=== PATIENT | female | born 1945 ===

== ENCOUNTER 2018-03-07 12:29 | Observation (INO) ==
[2018-03-07 13:28] LABS: Alanine Aminotransferase 18 U/L (13-56); Albumin 1.5 G/DL (3.4-5.0); Alkaline Phosphatase 143 U/L (45-117); Aspartate Amino Transferase 16 U/L (0-37); Bilirubin,Total < 0.39 MG/DL (0.2-1.0); Blood Urea Nitrogen 33 MG/DL (7-18); Calcium 7.3 MG/DL (8.5-10.1); Glucose 89 MG/DL (74-106); Osmolality,Calculated 284.4 MOS/KG (273-304); Potassium 5.2 MMOL/L (3.5-5.1); Sodium 140 MMOL/L (136-145); Total Protein 6.5 G/DL (6.4-8.3)
[2018-03-07 13:29] LABS: Lactic Acid 0.7 MMOL/L (0.4-2.0)
[2018-03-07 14:19] LABS: Basophils % 0.4 % (0.0-0.8); Eosinophils # 0.3 10*3/uL (0.0-0.87); Eosinophils % 3.3 % (0.00-10.9); Hematocrit 22.5 VOL% (35.7-47.0); Immature Granulocytes % 0.6 %; Immature Granulocytes Absolute 0.05 #; Lymphocytes # 2.1 10*3/uL (1.4-4.0); Lymphocytes % 26.9 % (21.3-54.2); Mean Corpuscular HGB Conc 31.1 GM/DL (32-36); Mean Corpuscular Hemoglobin 32 PG (27-34); Mean Corpuscular Volume 103.2 FL (87-102); Mean Platelet Volume 9.3 FL (9.6-12.0); Monocytes # 0.6 10*3/uL (0.11-0.8); Monocytes % 7.4 % (1.7-12.7); Neutrophils # 4.8 10*3/uL (1.4-7.4); Neutrophils % 61.4 % (38.7-73.9); Platelet Count 357 T/CUMM (130-400); Red Blood Count 2.18 MC/CUMM (3.8-5.5); Red Cell Distribution Width 13.4 % (9.3-17.3)
[2018-03-07 14:20] LABS: White Blood Count 7.9 T/CUMM (4-12)
[2018-03-07] MEDS ORDERED: GLUCAGON 1 MG VIAL IM PRN (14:34)
[2018-03-07] MEDS ORDERED: ACETAMINOPHEN 325 MG TABLET PO PRN (14:34)
[2018-03-07] MEDS ORDERED: DEXTROSE 50% 25 GM/50 ML VIAL IV PRN (14:34)
[2018-03-07] MEDS ORDERED: SODIUM CHLORIDE 0.9% 1,000 ML IV PRN ×2 (14:41→15:18)
[2018-03-07] MEDS: INSULIN REGULAR 100 UNIT/ML SUBCUT SCH ×2 (16:59→20:57)
[2018-03-08 05:59] LABS: Basophils % 0.7 % (0.0-0.8); Eosinophils # 0.3 10*3/uL (0.0-0.87); Hematocrit 26.1 VOL% (35.7-47.0); Hemoglobin 8.3 GM/DL (12.0-16.0); Immature Granulocytes % 0.7 %; Immature Granulocytes Absolute 0.04 #; Lymphocytes % 33.4 % (21.3-54.2); Mean Corpuscular HGB Conc 31.8 GM/DL (32-36); Mean Corpuscular Hemoglobin 31 PG (27-34); Mean Platelet Volume 9.3 FL (9.6-12.0); Monocytes # 0.6 10*3/uL (0.11-0.8); Neutrophils % 50.2 % (38.7-73.9); Platelet Count 295 T/CUMM (130-400); Red Blood Count 2.72 MC/CUMM (3.8-5.5); Red Cell Distribution Width 15.6 % (9.3-17.3)
[2018-03-08 06:28] LABS: Calcium 7.2 MG/DL (8.5-10.1); Osmolality,Calculated 290.1 MOS/KG (273-304); Potassium 5.2 MMOL/L (3.5-5.1)
[2018-03-08] MEDS ORDERED: PANTOPRAZOLE 40 MG TABLET PO SCH (09:00)
[2018-03-08] MEDS: INSULIN REGULAR 100 UNIT/ML SUBCUT SCH (09:25)
[2018-03-08 12:05] VITALS: BP 157/84
== END 2018-03-08 12:08 ==
LOC: EDUNIT# → EDBD → N.EDINP 12:29 → N.ED 12:29 → N.EDINP 16:25 → N.2E 16:34
PROVIDERS: ADMIT Internal Medicine Geriatric Medicine; ATTEND Internal Medicine Geriatric Medicine

== ENCOUNTER 2019-06-26 06:04 | Inpatient (IN) ==
[~2019-06-26 06:04] MED LIST: FAMOTIDINE 20 MG/2 ML VIAL IV ONE; ceFAZolin 1,000 MG in SYRINGE 1 EACH IV ONE
[2019-06-26] MEDS ORDERED: ceFAZolin 1,000 MG VIAL ONE (06:08)
[2019-06-26] MEDS ORDERED: DEXTROSE 50% 25 GM/50 ML VIAL IV ONE ×2 (07:04→11:59)
[2019-06-26] MEDS ORDERED: GABAPENTIN 400 MG CAPSULE PO ONE (07:08)
[2019-06-26] MEDS: LACTATED RINGERS 1,000 ML IV SCH (07:50)
[2019-06-26] MEDS ORDERED: GABAPENTIN 400 MG CAPSULE ONE (08:12)
[2019-06-26] MEDS ORDERED: FAMOTIDINE 20 MG/2 ML VIAL IV ONE (08:13)
[2019-06-26 09:19] LABS: Basophils % 0.2 % (0.0-0.8); Eosinophils % 0.2 % (0.00-10.9); Hematocrit 26.5 VOL% (35.7-47.0); Immature Granulocytes % 0.4 %; Immature Granulocytes Absolute 0.05 #; Mean Corpuscular HGB Conc 30.2 GM/DL (32-36); Mean Corpuscular Volume 103.1 FL (87-102); Monocytes % 5.6 % (1.7-12.7); Neutrophils % 85.6 % (38.7-73.9); Platelet Count 320 T/CUMM (130-400); Red Blood Count 2.57 MC/CUMM (3.8-5.5); Red Cell Distribution Width 19.3 % (9.3-17.3); White Blood Count 12.6 T/CUMM (4-12)
[2019-06-26 09:47] LABS: Albumin 1.3 G/DL (3.4-5.0); Bilirubin,Total 0.4 MG/DL (0.2-1.0); Osmolality,Calculated 291.3 MOS/KG (273-304); Total Protein 5.9 G/DL (6.4-8.3)
[2019-06-26 09:49] LABS: Calcium 5.2 MG/DL (8.5-10.1)
[2019-06-26] MEDS ORDERED: CALCIUM CHLORIDE 1,000 MG/10 ML VIAL IV ONE (09:53)
[2019-06-26] MEDS ORDERED: ONDANSETRON 4 MG/2 ML VIAL IV PRN (10:54)
[2019-06-26] MEDS ORDERED: HYDROmorphone 2 MG/1 ML VIAL IV PRN ×2 (10:54)
[2019-06-26] MEDS ORDERED: ACETAMINOPHEN 325 MG TABLET PO PRN (10:54)
[2019-06-26] MEDS ORDERED: BISACODYL 5 MG TABLET PO PRN (10:54)
[2019-06-26] MEDS ORDERED: ALBUTEROL/IPRATROPIUM 3 ML NEB RESP TX PRN (10:54)
[2019-06-26] MEDS ORDERED: DEXTROSE 50% 25 GM/50 ML VIAL IV PRN (10:58)
[2019-06-26] MEDS ORDERED: GLUCAGON 1 MG VIAL IM PRN (10:58)
[2019-06-26] MEDS ORDERED: dimenhyDRINATE 50 MG TABLET PO PRN (10:59)
[2019-06-26] MEDS ORDERED: diphenhydrAMINE CAP 25 MG CAPSULE PO PRN (10:59)
[2019-06-26] MEDS ORDERED: LIDOCAINE 2% 5 ML VIAL ONE (11:41)
[2019-06-26] MEDS ORDERED: fentaNYL 100 MCG/2 ML VIAL ONE (11:41)
[2019-06-26] MEDS ORDERED: ONDANSETRON 4 MG/2 ML VIAL ONE (11:42)
[2019-06-26] MEDS ORDERED: ePHEDrine 50 MG/ML AMP ONE (11:42)
[2019-06-26] MEDS ORDERED: ETOMIDATE 40 MG/20 ML VIAL IV ONE (11:42)
[2019-06-26] MEDS ORDERED: KETAMINE 500 MG/10 ML VIAL ONE (11:42)
[2019-06-26] MEDS ORDERED: SEVOFLURANE 1 UNIT/15 MINUTE INH ONE (11:42)
[2019-06-26] MEDS ORDERED: PHENYLEPHRINE 1 MG/10 ML SYRINGE IV ONE (11:43)
[2019-06-26] MEDS: INSULIN LISPRO 100 UNIT/ML SUBCUT SCH ×2 (12:54→16:31)
[2019-06-26] MEDS: hydrALAZINE 25 MG TABLET PO SCH ×2 (15:42→21:52)
[2019-06-26] MEDS: ceFAZolin 2,000 MG in PREMIX 1 EACH IV SCH (17:10)
[2019-06-26] MEDS ORDERED: ARGININE GLUTAMINE CALCIUM HMB PO SCH (21:00)
[2019-06-26] MEDS: FERROUS SULFATE 325 MG TABLET PO SCH (21:52)
[2019-06-26] MEDS: ZINC OXIDE PASTE 113 GM TUBE TOP SCH (21:52)
[2019-06-27] MEDS: ceFAZolin 2,000 MG in PREMIX 1 EACH IV SCH (00:51)
[2019-06-27 05:55] LABS: Osmolality,Calculated 293.3 MOS/KG (273-304)
[2019-06-27 05:58] LABS: Calcium 5.5 MG/DL (8.5-10.1)
[2019-06-27] MEDS: LACTATED RINGERS 1,000 ML IV SCH ×2 (06:14→19:35)
[2019-06-27 06:50] LABS: Basophils % 0.3 % (0.0-0.8); Eosinophils # 0.1 10*3/uL (0.0-0.87); Eosinophils % 0.9 % (0.00-10.9); Hematocrit 19.1 VOL% (35.7-47.0); Immature Granulocytes % 0.6 %; Immature Granulocytes Absolute 0.04 #; Lymphocytes # 1.1 10*3/uL (1.4-4.0); Lymphocytes % 17.6 % (21.3-54.2); Mean Corpuscular HGB Conc 30.4 GM/DL (32-36); Mean Corpuscular Volume 103.2 FL (87-102); Mean Platelet Volume 9.6 FL (9.6-12.0); Monocytes % 8.1 % (1.7-12.7); Neutrophils % 72.5 % (38.7-73.9); Platelet Count 234 T/CUMM (130-400); Red Blood Count 1.85 MC/CUMM (3.8-5.5); Red Cell Distribution Width 19.3 % (9.3-17.3); White Blood Count 6.4 T/CUMM (4-12)
[2019-06-27 06:56] LABS: Hemoglobin 5.8 GM/DL (12.0-16.0)
[2019-06-27] MEDS ORDERED: SODIUM CHLORIDE 0.9% 1,000 ML IV PRN (07:08)
[2019-06-27] MEDS ORDERED: CALCIUM GLUCONATE 2,000 MG in SODIUM CHLORIDE 0.9% 100 ML IV ONE ×2 (08:00→11:00)
[2019-06-27] MEDS: INSULIN LISPRO 100 UNIT/ML SUBCUT SCH ×3 (09:34→17:49)
[2019-06-27] MEDS: ZINC SULFATE 220 MG CAPSULE PO SCH (10:12)
[2019-06-27] MEDS: ASCORBIC ACID 500 MG TABLET PO SCH (10:13)
[2019-06-27] MEDS: FERROUS SULFATE 325 MG TABLET PO SCH ×2 (10:13→20:45)
[2019-06-27] MEDS: PANTOPRAZOLE 40 MG TABLET PO SCH (10:13)
[2019-06-27] MEDS: hydrALAZINE 25 MG TABLET PO SCH ×3 (10:13→20:44)
[2019-06-27] MEDS: MAGNESIUM HYDROXIDE SUSP 30 ML UDCUP PO SCH (10:14)
[2019-06-27] MEDS: ZINC OXIDE PASTE 113 GM TUBE TOP SCH ×2 (10:19→20:45)
[2019-06-27 10:44] LABS: Parathyroid Hormone Intact 52.5 PG/ML (18.4-80.1)
[2019-06-27] MEDS ORDERED: MAGNESIUM SULF RIDER 2 GM in PREMIX 1 EACH IV ONE (11:02)
[2019-06-27 16:02] LABS: % Iron Saturation 31.7 % (18-50); Ferritin 1704.4 ng/ml (8-252)
[2019-06-27 16:19] LABS: Folate 7.5 NG/ML (5.4-24.0)
[2019-06-27] MEDS ORDERED: SODIUM CHLORIDE 0.9% 500 ML IV ONE (19:07)
[2019-06-27] MEDS: CALCIUM (CARBONATE)/VITAMIN D 600 MG-400 UNIT TABLET PO SCH (20:44)
[2019-06-28 01:48] LABS: Hematocrit 26.9 VOL% (35.7-47.0)
[2019-06-28 01:50] LABS: Hemoglobin 8.5 GM/DL (12.0-16.0)
[2019-06-28 02:15] LABS: Basophils % 0.2 % (0.0-0.8); Eosinophils # 0.1 10*3/uL (0.0-0.87); Eosinophils % 2.5 % (0.00-10.9); Immature Granulocytes Absolute 0.05 #; Lymphocytes # 1.1 10*3/uL (1.4-4.0); Lymphocytes % 20.8 % (21.3-54.2); Mean Corpuscular HGB Conc 31.1 GM/DL (32-36); Mean Corpuscular Volume 97.5 FL (87-102); Mean Platelet Volume 9.7 FL (9.6-12.0); Monocytes % 6.8 % (1.7-12.7); Neutrophils % 68.7 % (38.7-73.9); Platelet Count 197 T/CUMM (130-400); Red Cell Distribution Width 18.5 % (9.3-17.3); White Blood Count 5.1 T/CUMM (4-12)
[2019-06-28 02:18] LABS: Hemoglobin 8.4 GM/DL (12.0-16.0)
[2019-06-28 02:19] LABS: Red Blood Count 2.77 MC/CUMM (3.8-5.5)
[2019-06-28 05:47] LABS: Osmolality,Calculated 290.3 MOS/KG (273-304)
[2019-06-28 06:12] LABS: Calcium 5.4 MG/DL (8.5-10.1)
[2019-06-28] MEDS: LACTATED RINGERS 1,000 ML IV SCH ×2 (06:45)
[2019-06-28] MEDS ORDERED: CALCIUM GLUCONATE 2,000 MG in SODIUM CHLORIDE 0.9% 100 ML IV ONE (07:00)
[2019-06-28 08:02] LABS: Free T4 (Free Thyroxine) 0.39 NG/DL (0.76-1.46)
[2019-06-28] MEDS: INSULIN LISPRO 100 UNIT/ML SUBCUT SCH (08:59)
[2019-06-28] MEDS: hydrALAZINE 25 MG TABLET PO SCH (09:59)
[2019-06-28] MEDS: FERROUS SULFATE 325 MG TABLET PO SCH (09:59)
[2019-06-28] MEDS: CALCIUM (CARBONATE)/VITAMIN D 600 MG-400 UNIT TABLET PO SCH (09:59)
[2019-06-28] MEDS: PANTOPRAZOLE 40 MG TABLET PO SCH (10:00)
[2019-06-28] MEDS: MAGNESIUM HYDROXIDE SUSP 30 ML UDCUP PO SCH (10:03)
[2019-06-28] MEDS: ASCORBIC ACID 500 MG TABLET PO SCH (10:03)
[2019-06-28] MEDS: ZINC SULFATE 220 MG CAPSULE PO SCH (10:04)
[2019-06-28] MEDS: ZINC OXIDE PASTE 113 GM TUBE TOP SCH (11:40)
[2019-06-28 12:07] VITALS: BP 140/67
[2019-06-29] MEDS ORDERED: LEVOTHYROXINE 50 MCG TABLET PO SCH (06:30)
== END 2019-06-28 12:10 | DRG 616 ==
LOC: N.SDSINP 06:04 → N.3E 12:52
PROVIDERS: ADMIT Surgery; ATTEND Surgery

== ENCOUNTER 2019-11-05 16:07 | Inpatient (IN) ==
[2019-11-05] MEDS ORDERED: GLUCAGON 1 MG VIAL IM PRN (19:16)
[2019-11-05] MEDS ORDERED: ONDANSETRON 4 MG/2 ML VIAL IV PRN (19:16)
[2019-11-05] MEDS ORDERED: DEXTROSE 10% 250 ML BAG IV PRN (19:16)
[2019-11-05] MEDS ORDERED: MAGNESIUM SULF RIDER 4 GM in PREMIX 1 EACH IV PRN (19:16)
[2019-11-05] MEDS ORDERED: ACETAMINOPHEN 325 MG TABLET PO PRN (19:16)
[2019-11-05] MEDS ORDERED: MAGNESIUM SULF RIDER 2 GM in PREMIX 1 EACH IV PRN (19:16)
[2019-11-05] MEDS ORDERED: ARGININE GLUTAMINE CALCIUM HMB PO SCH (21:00)
[2019-11-05] MEDS ORDERED: ENOXAPARIN 40 MG/0.4 ML SYRINGE SUBCUT SCH (21:00)
[2019-11-05] MEDS: CALCIUM (CARBONATE)/VITAMIN D 600 MG-400 UNIT TABLET PO SCH (21:28)
[2019-11-05] MEDS: MEMANTINE 5 MG TABLET PO SCH (21:28)
[2019-11-06] MEDS: LEVOTHYROXINE 75 MCG TABLET PO SCH (05:41)
[2019-11-06 06:21] LABS: Basophils % 0.5 % (0.0-0.8); Eosinophils # 0.1 10*3/uL (0.0-0.87); Eosinophils % 2.1 % (0.00-10.9); Hematocrit 26.9 VOL% (35.7-47.0); Immature Granulocytes % 1.2 %; Immature Granulocytes Absolute 0.05 #; Lymphocytes # 0.9 10*3/uL (1.4-4.0); Lymphocytes % 21.2 % (21.3-54.2); Mean Corpuscular HGB Conc 29.7 GM/DL (32-36); Mean Platelet Volume 9.8 FL (9.6-12.0); Monocytes % 6.9 % (1.7-12.7); Neutrophils % 68.1 % (38.7-73.9); Platelet Count 169 T/CUMM (130-400); Red Blood Count 2.49 MC/CUMM (3.8-5.5); Red Cell Distribution Width 19.4 % (9.3-17.3); White Blood Count 4.2 T/CUMM (4-12)
[2019-11-06] MEDS: CALCIUM (CARBONATE)/VITAMIN D 600 MG-400 UNIT TABLET PO SCH ×2 (11:59→21:29)
[2019-11-06] MEDS: ASPIRIN CHEW 81 MG TABLET PO SCH (11:59)
[2019-11-06] MEDS: MEMANTINE 5 MG TABLET PO SCH ×2 (11:59→21:29)
[2019-11-06] MEDS: FOLIC ACID 1 MG TABLET PO SCH (11:59)
[2019-11-06] MEDS: FUROSEMIDE 20 MG/2 ML VIAL IV SCH ×2 (11:59→16:49)
[2019-11-06] MEDS: amLODIPine 5 MG TABLET PO SCH (12:00)
[2019-11-06] MEDS: PANTOPRAZOLE 40 MG TABLET PO SCH (12:00)
[2019-11-06 12:17] LABS: Alanine Aminotransferase < 6 U/L (13-56); Albumin 1.1 G/DL (3.4-5.0); Alkaline Phosphatase 112 U/L (45-117); Aspartate Amino Transferase 13 U/L (0-37); Bilirubin,Total < 0.39 MG/DL (0.2-1.0); Blood Urea Nitrogen 63 MG/DL (7-18); Estimated Glom Filtration Rate 14 ML/MIN; Glucose 67 MG/DL (74-106); HDL Cholesterol 36 MG/DL (40-60); Risk Ratio 2.78; Total Protein 5.9 G/DL (6.4-8.3); Triglycerides 113 MG/DL (2-150); VLDL CHOLESTEROL 22.6 MG/DL
[2019-11-06 12:20] LABS: Calcium 5.1 MG/DL (8.5-10.1)
[2019-11-06] MEDS ORDERED: propofoL 200 MG/20 ML VIAL IV ONE (14:50)
[2019-11-06] MEDS ORDERED: SEVOFLURANE 1 UNIT/15 MINUTE INH ONE (14:50)
[2019-11-06] MEDS ORDERED: LIDOCAINE 2% 5 ML VIAL ONE (14:50)
[2019-11-06] MEDS ORDERED: NEOSTIGMINE 10 MG/10 ML VIAL ONE ×2 (14:51→14:52)
[2019-11-06] MEDS ORDERED: SUCCINYLCHOLINE 200 MG/10 ML VIAL ONE (14:51)
[2019-11-06] MEDS ORDERED: ROCURONIUM 100 MG/10 ML VIAL IV ONE (14:51)
[2019-11-06] MEDS ORDERED: GLYCOPYRROLATE 0.4 MG/2 ML VIAL ONE (14:51)
[2019-11-06] MEDS ORDERED: PHENYLEPHRINE 1 MG/10 ML SYRINGE IV ONE (14:51)
[2019-11-06] MEDS ORDERED: fentaNYL 100 MCG/2 ML VIAL ONE (14:52)
[2019-11-06 19:48] LABS: Apearance,Urine CLOUDY (Clear); Bilirubin,Urine Negative (Negative); Blood, Urine Small mg/dL (Negative); Glucose,Urine (UA) Negative (Negative); Ketones,Urine Negative (Negative); Nitrite,Urine Negative (Negative); Protein,Urine 100 MG/DL; RBC,Urine 34 /HPF (0-4); Squamous Epithelial Cell,Urine Occasional /HPF (0-10); Urine Color Yellow (Yellow); Urine Specific Gravity 1.012 (1.001-1.035); Urine Urobilinogen < 2.0 EU/DL (0.2-1.0); WBC,Urine 1019 /HPF (0-6)
[2019-11-06] MEDS: ENOXAPARIN 30 MG/0.3 ML SYRINGE SUBCUT SCH (21:28)
[2019-11-07] MEDS: LEVOTHYROXINE 75 MCG TABLET PO SCH (06:01)
[2019-11-07] MEDS: MEMANTINE 5 MG TABLET PO SCH ×2 (08:40→22:49)
[2019-11-07] MEDS: CALCIUM (CARBONATE)/VITAMIN D 600 MG-400 UNIT TABLET PO SCH ×2 (08:40→22:48)
[2019-11-07] MEDS: PANTOPRAZOLE 40 MG TABLET PO SCH (08:40)
[2019-11-07] MEDS: amLODIPine 5 MG TABLET PO SCH (08:40)
[2019-11-07] MEDS: FOLIC ACID 1 MG TABLET PO SCH (08:40)
[2019-11-07] MEDS: ASPIRIN CHEW 81 MG TABLET PO SCH (08:40)
[2019-11-07] MEDS: FUROSEMIDE 20 MG/2 ML VIAL IV SCH ×2 (08:42→16:47)
[2019-11-07 08:49] LABS: Basophils % 0.2 % (0.0-0.8); Hematocrit 24.8 VOL% (35.7-47.0); Hemoglobin 7.3 GM/DL (12.0-16.0); Immature Granulocytes % 0.9 %; Immature Granulocytes Absolute 0.05 #; Lymphocytes # 0.7 10*3/uL (1.4-4.0); Mean Corpuscular HGB Conc 29.4 GM/DL (32-36); Mean Corpuscular Volume 110.2 FL (87-102); Monocytes % 3.9 % (1.7-12.7); Platelet Count 182 T/CUMM (130-400); Red Blood Count 2.25 MC/CUMM (3.8-5.5); Red Cell Distribution Width 19.9 % (9.3-17.3); White Blood Count 5.8 T/CUMM (4-12)
[2019-11-07 09:08] LABS: Osmolality,Calculated 301.1 MOS/KG (273-304)
[2019-11-07 09:44] LABS: Burr Cells Slight; Hypochromasia 1+; Ovalocytes Slight
[2019-11-07 09:45] LABS: Platelet Estimate Adequate
[2019-11-07] MEDS: INSULIN REGULAR 100 UNIT/ML SUBCUT SCH ×3 (12:08→22:55)
[2019-11-07] MEDS: ENOXAPARIN 30 MG/0.3 ML SYRINGE SUBCUT SCH (22:48)
[2019-11-08 04:27] LABS: Basophils % 0.2 % (0.0-0.8); Eosinophils # 0.1 10*3/uL (0.0-0.87); Eosinophils % 1.1 % (0.00-10.9); Hematocrit 24.9 VOL% (35.7-47.0); Hemoglobin 7.3 GM/DL (12.0-16.0); Immature Granulocytes % 1.1 %; Immature Granulocytes Absolute 0.07 #; Lymphocytes # 1.1 10*3/uL (1.4-4.0); Lymphocytes % 17.9 % (21.3-54.2); Mean Corpuscular HGB Conc 29.3 GM/DL (32-36); Mean Corpuscular Volume 110.2 FL (87-102); Monocytes % 8.9 % (1.7-12.7); NRBC # 0.02 10*3/uL; Neutrophils % 70.8 % (38.7-73.9); Platelet Count 179 T/CUMM (130-400); Red Blood Count 2.26 MC/CUMM (3.8-5.5); Red Cell Distribution Width 20.1 % (9.3-17.3); White Blood Count 6.2 T/CUMM (4-12)
[2019-11-08 05:06] LABS: Osmolality,Calculated 301.1 MOS/KG (273-304)
[2019-11-08] MEDS: LEVOTHYROXINE 75 MCG TABLET PO SCH (05:37)
[2019-11-08 06:00] LABS: Anisocytosis 1+; Platelet Estimate Adequate
[2019-11-08] MEDS: INSULIN REGULAR 100 UNIT/ML SUBCUT SCH ×4 (07:40→21:51)
[2019-11-08] MEDS ORDERED: BUMETANIDE 1 MG/4 ML VIAL IV ONE (08:37)
[2019-11-08] MEDS ORDERED: SODIUM CHLORIDE 0.9% 1,000 ML IV PRN (08:39)
[2019-11-08] MEDS: FUROSEMIDE 20 MG/2 ML VIAL IV SCH ×2 (09:00→16:35)
[2019-11-08] MEDS: amLODIPine 5 MG TABLET PO SCH (10:08)
[2019-11-08] MEDS: FOLIC ACID 1 MG TABLET PO SCH (10:09)
[2019-11-08] MEDS: ASPIRIN CHEW 81 MG TABLET PO SCH (10:09)
[2019-11-08] MEDS: MEMANTINE 5 MG TABLET PO SCH ×2 (10:09→21:54)
[2019-11-08] MEDS: CALCIUM (CARBONATE)/VITAMIN D 600 MG-400 UNIT TABLET PO SCH ×2 (10:09→21:53)
[2019-11-08] MEDS: PANTOPRAZOLE 40 MG TABLET PO SCH (10:09)
[2019-11-08] MEDS: MEROPENEM 500 MG in SODIUM CHLORIDE 0.9% 100 ML IV SCH (16:16)
[2019-11-08] MEDS: ENOXAPARIN 30 MG/0.3 ML SYRINGE SUBCUT SCH (21:54)
[2019-11-09] MEDS: MEROPENEM 500 MG in SODIUM CHLORIDE 0.9% 100 ML IV SCH ×2 (03:30→16:26)
[2019-11-09 05:32] LABS: Osmolality,Calculated 300.3 MOS/KG (273-304)
[2019-11-09 05:39] LABS: Calcium 5.7 MG/DL (8.5-10.1)
[2019-11-09 06:04] LABS: Basophils % 0.2 % (0.0-0.8); Eosinophils # 0.1 10*3/uL (0.0-0.87); Eosinophils % 0.9 % (0.00-10.9); Hematocrit 31.9 VOL% (35.7-47.0); Hemoglobin 9.5 GM/DL (12.0-16.0); Immature Granulocytes Absolute 0.11 #; Lymphocytes # 0.8 10*3/uL (1.4-4.0); Lymphocytes % 14.8 % (21.3-54.2); Mean Corpuscular HGB Conc 29.8 GM/DL (32-36); Mean Corpuscular Volume 104.6 FL (87-102); Mean Platelet Volume 10.3 FL (9.6-12.0); Monocytes % 7.9 % (1.7-12.7); NRBC # 0.04 10*3/uL; Neutrophils % 74.2 % (38.7-73.9); Platelet Count 162 T/CUMM (130-400); Red Blood Count 3.05 MC/CUMM (3.8-5.5); Red Cell Distribution Width 21.6 % (9.3-17.3); White Blood Count 5.4 T/CUMM (4-12)
[2019-11-09] MEDS: LEVOTHYROXINE 75 MCG TABLET PO SCH (06:10)
[2019-11-09] MEDS: INSULIN REGULAR 100 UNIT/ML SUBCUT SCH ×4 (06:48→21:16)
[2019-11-09] MEDS: CALCIUM (CARBONATE)/VITAMIN D 600 MG-400 UNIT TABLET PO SCH ×2 (10:43→20:47)
[2019-11-09] MEDS: FUROSEMIDE 20 MG/2 ML VIAL IV SCH (10:43)
[2019-11-09] MEDS: MEMANTINE 5 MG TABLET PO SCH ×2 (10:43→20:47)
[2019-11-09] MEDS: ASPIRIN CHEW 81 MG TABLET PO SCH (10:43)
[2019-11-09] MEDS: PANTOPRAZOLE 40 MG TABLET PO SCH (10:43)
[2019-11-09] MEDS: FOLIC ACID 1 MG TABLET PO SCH (10:43)
[2019-11-09] MEDS: amLODIPine 5 MG TABLET PO SCH (10:43)
[2019-11-09] MEDS ORDERED: CALCIUM GLUCONATE 2,000 MG in SODIUM CHLORIDE 0.9% 100 ML IV ONE (11:35)
[2019-11-09] MEDS: ENOXAPARIN 30 MG/0.3 ML SYRINGE SUBCUT SCH (20:47)
[2019-11-09] MEDS ORDERED: SODIUM BICARBONATE 650 MG TABLET PO SCH (21:00)
[2019-11-10] MEDS: LEVOTHYROXINE 75 MCG TABLET PO SCH (05:40)
[2019-11-10] MEDS: MEROPENEM 500 MG in SODIUM CHLORIDE 0.9% 100 ML IV SCH (05:40)
[2019-11-10 05:44] LABS: Basophils % 0.2 % (0.0-0.8); Eosinophils % 0.7 % (0.00-10.9); Hematocrit 27.9 VOL% (35.7-47.0); Hemoglobin 8.2 GM/DL (12.0-16.0); Immature Granulocytes % 2.2 %; Immature Granulocytes Absolute 0.12 #; Lymphocytes # 0.6 10*3/uL (1.4-4.0); Lymphocytes % 11.8 % (21.3-54.2); Mean Corpuscular HGB Conc 29.4 GM/DL (32-36); Mean Corpuscular Volume 106.1 FL (87-102); Monocytes % 6.7 % (1.7-12.7); NRBC # 0.03 10*3/uL; Neutrophils % 78.4 % (38.7-73.9); Platelet Count 167 T/CUMM (130-400); Red Blood Count 2.63 MC/CUMM (3.8-5.5); Red Cell Distribution Width 21.1 % (9.3-17.3); White Blood Count 5.3 T/CUMM (4-12)
[2019-11-10 06:10] LABS: Alanine Aminotransferase < 9 U/L (13-56); Albumin 1.2 G/DL (3.4-5.0); Alkaline Phosphatase 108 U/L (45-117); Aspartate Amino Transferase 17 U/L (0-37); Bilirubin,Total < 0.39 MG/DL (0.2-1.0); Blood Urea Nitrogen 73 MG/DL (7-18); Calcium 6.1 MG/DL (8.5-10.1); Estimated Glom Filtration Rate 11 ML/MIN; Glucose 98 MG/DL (74-106); Total Protein 5.8 G/DL (6.4-8.3)
[2019-11-10] MEDS: SODIUM BICARBONATE 650 MG TABLET PO SCH ×4 (09:00→21:04)
[2019-11-10] MEDS: MEMANTINE 5 MG TABLET PO SCH ×2 (09:00→21:04)
[2019-11-10] MEDS: CALCIUM (CARBONATE)/VITAMIN D 600 MG-400 UNIT TABLET PO SCH ×2 (09:00→21:04)
[2019-11-10] MEDS: FOLIC ACID 1 MG TABLET PO SCH (09:01)
[2019-11-10] MEDS: PANTOPRAZOLE 40 MG TABLET PO SCH (09:01)
[2019-11-10] MEDS: ASPIRIN CHEW 81 MG TABLET PO SCH (09:01)
[2019-11-10] MEDS: INSULIN REGULAR 100 UNIT/ML SUBCUT SCH ×3 (09:01→16:39)
[2019-11-10] MEDS: FUROSEMIDE 20 MG/2 ML VIAL IV SCH (16:39)
[2019-11-11] MEDS: INSULIN REGULAR 100 UNIT/ML SUBCUT SCH ×5 (00:37→21:16)
[2019-11-11] MEDS: LEVOTHYROXINE 75 MCG TABLET PO SCH (05:34)
[2019-11-11] MEDS ORDERED: ceFAZolin 1,000 MG in SYRINGE 1 EACH IV ONE (06:00)
[2019-11-11 06:04] LABS: Basophils % 0.5 % (0.0-0.8); Eosinophils # 0.1 10*3/uL (0.0-0.87); Eosinophils % 1.1 % (0.00-10.9); Hematocrit 25.7 VOL% (35.7-47.0); Hemoglobin 7.9 GM/DL (12.0-16.0); Immature Granulocytes % 2.4 %; Immature Granulocytes Absolute 0.15 #; Lymphocytes # 0.8 10*3/uL (1.4-4.0); Lymphocytes % 12.2 % (21.3-54.2); Mean Corpuscular HGB Conc 30.7 GM/DL (32-36); Mean Corpuscular Volume 104.9 FL (87-102); Mean Platelet Volume 10.3 FL (9.6-12.0); Monocytes % 7.5 % (1.7-12.7); NRBC # 0.05 10*3/uL; Neutrophils % 76.3 % (38.7-73.9); Platelet Count 166 T/CUMM (130-400); Red Blood Count 2.45 MC/CUMM (3.8-5.5); Red Cell Distribution Width 20.8 % (9.3-17.3); White Blood Count 6.4 T/CUMM (4-12)
[2019-11-11 06:31] LABS: Albumin 1.1 G/DL (3.4-5.0); Calcium 6.3 MG/DL (8.5-10.1); Osmolality,Calculated 301.4 MOS/KG (273-304)
[2019-11-11] MEDS ORDERED: HEPARIN 5,000 UNIT/1 ML VIAL ONE (06:46)
[2019-11-11] MEDS ORDERED: LIDOCAINE 1%/EPI INJ 20 ML VIAL ONE (06:46)
[2019-11-11] MEDS ORDERED: BUPIVACAINE MPF 0.25% 30 ML VIAL ONE (06:46)
[2019-11-11] MEDS ORDERED: SODIUM CHLORIDE 0.9% 250 ML IV SCH (07:30)
[2019-11-11] MEDS ORDERED: propofoL 200 MG/20 ML VIAL IV ONE (08:06)
[2019-11-11] MEDS ORDERED: KETAMINE 500 MG/10 ML VIAL ONE (08:06)
[2019-11-11] MEDS ORDERED: LIDOCAINE 2% 5 ML VIAL ONE (08:06)
[2019-11-11] MEDS: SODIUM BICARBONATE 650 MG TABLET PO SCH ×4 (11:35→23:42)
[2019-11-11] MEDS: FOLIC ACID 1 MG TABLET PO SCH (12:02)
[2019-11-11] MEDS: CALCIUM (CARBONATE)/VITAMIN D 600 MG-400 UNIT TABLET PO SCH ×2 (12:02→21:16)
[2019-11-11] MEDS: PANTOPRAZOLE 40 MG TABLET PO SCH (12:02)
[2019-11-11] MEDS: MEMANTINE 5 MG TABLET PO SCH ×2 (12:02→21:16)
[2019-11-11] MEDS: ASPIRIN CHEW 81 MG TABLET PO SCH (12:02)
[2019-11-11 12:53] LABS: Hepatitis B Core IgM Quant < 0.05 Index; Hepatitis B Surface Ag Quant < 0.10 Index; Hepatitis B Surface Ag Result Negative (Negative); Hepatitis C Virus Ab Quant 0.58 Index; Hepatitis C Virus Ab Result Negative (Negative)
[2019-11-11] MEDS ORDERED: HEPARIN 10,000 UNIT/10 ML VIAL IV SCH (15:00)
[2019-11-12] MEDS: LEVOTHYROXINE 75 MCG TABLET PO SCH (06:11)
[2019-11-12] MEDS: FOLIC ACID 1 MG TABLET PO SCH (08:27)
[2019-11-12] MEDS: PANTOPRAZOLE 40 MG TABLET PO SCH (08:27)
[2019-11-12] MEDS: SODIUM BICARBONATE 650 MG TABLET PO SCH ×4 (08:27→20:45)
[2019-11-12] MEDS: ASPIRIN CHEW 81 MG TABLET PO SCH (08:27)
[2019-11-12] MEDS: MEMANTINE 5 MG TABLET PO SCH ×2 (08:27→20:45)
[2019-11-12] MEDS: CALCIUM (CARBONATE)/VITAMIN D 600 MG-400 UNIT TABLET PO SCH ×2 (08:27→20:45)
[2019-11-12] MEDS: INSULIN REGULAR 100 UNIT/ML SUBCUT SCH ×4 (08:28→20:45)
[2019-11-12] MEDS ORDERED: EPOETIN ALFA 2,000 UNIT/1 ML VIAL IV PRN (08:48)
[2019-11-12 09:40] LABS: % Iron Saturation 77.4 % (18-50)
[2019-11-12] MEDS ORDERED: EPOETIN ALFA-EPBX 10,000 UNIT/ML VIAL IV PRN (10:30)
[2019-11-12] MEDS: CALCIUM (CARBONATE) 500 MG TABLET PO SCH (13:07)
[2019-11-13] MEDS: LEVOTHYROXINE 75 MCG TABLET PO SCH (05:02)
[2019-11-13 06:09] LABS: Basophils % 0.2 % (0.0-0.8); Eosinophils # 0.1 10*3/uL (0.0-0.87); Eosinophils % 1.4 % (0.00-10.9); Hematocrit 24.6 VOL% (35.7-47.0); Hemoglobin 7.4 GM/DL (12.0-16.0); Immature Granulocytes % 1.6 %; Immature Granulocytes Absolute 0.08 #; Lymphocytes # 0.7 10*3/uL (1.4-4.0); Lymphocytes % 13.5 % (21.3-54.2); Mean Corpuscular HGB Conc 30.1 GM/DL (32-36); Mean Corpuscular Volume 101.7 FL (87-102); Monocytes % 11.4 % (1.7-12.7); Neutrophils % 71.9 % (38.7-73.9); Platelet Count 116 T/CUMM (130-400); Red Blood Count 2.42 MC/CUMM (3.8-5.5); Red Cell Distribution Width 20.2 % (9.3-17.3); White Blood Count 5.1 T/CUMM (4-12)
[2019-11-13 06:34] LABS: Calcium 6.1 MG/DL (8.5-10.1); Osmolality,Calculated 288.3 MOS/KG (273-304)
[2019-11-13] MEDS: INSULIN REGULAR 100 UNIT/ML SUBCUT SCH ×4 (07:02→21:33)
[2019-11-13] MEDS: FOLIC ACID 1 MG TABLET PO SCH ×2 (07:58)
[2019-11-13] MEDS: ASPIRIN CHEW 81 MG TABLET PO SCH ×2 (07:58)
[2019-11-13] MEDS: CALCIUM (CARBONATE)/VITAMIN D 600 MG-400 UNIT TABLET PO SCH ×3 (07:58→21:32)
[2019-11-13] MEDS: PANTOPRAZOLE 40 MG TABLET PO SCH (07:59)
[2019-11-13] MEDS: CALCIUM (CARBONATE) 500 MG TABLET PO SCH (07:59)
[2019-11-13] MEDS: SODIUM BICARBONATE 650 MG TABLET PO SCH ×4 (07:59→21:33)
[2019-11-13] MEDS: MEMANTINE 5 MG TABLET PO SCH ×2 (07:59→21:33)
[2019-11-14] MEDS: LEVOTHYROXINE 75 MCG TABLET PO SCH (05:52)
[2019-11-14] MEDS: INSULIN REGULAR 100 UNIT/ML SUBCUT SCH ×2 (07:51→11:43)
[2019-11-14] MEDS: FOLIC ACID 1 MG TABLET PO SCH (09:26)
[2019-11-14] MEDS: PANTOPRAZOLE 40 MG TABLET PO SCH (09:26)
[2019-11-14] MEDS: MEMANTINE 5 MG TABLET PO SCH (09:26)
[2019-11-14] MEDS: CALCIUM (CARBONATE) 500 MG TABLET PO SCH (09:26)
[2019-11-14] MEDS: CALCIUM (CARBONATE)/VITAMIN D 600 MG-400 UNIT TABLET PO SCH (09:26)
[2019-11-14] MEDS: SODIUM BICARBONATE 650 MG TABLET PO SCH ×2 (09:26→13:05)
[2019-11-14] MEDS: ASPIRIN CHEW 81 MG TABLET PO SCH (09:27)
[2019-11-14 12:30] VITALS: BP 148/75
== END 2019-11-14 13:04 | DRG 393 ==
LOC: EDUNIT# → EDBD → N.ED 16:07 → SUPCPDRO 19:16 → N.EDINP 19:16 → SUATTDRO 19:16 → N.5E 19:57
PROVIDERS: ADMIT Family Medicine; ATTEND Internal Medicine Geriatric Medicine